=== PATIENT | male | born 1955 | race African-American/Black ===

== ENCOUNTER 2021-03-25 03:55 | Observation (INO) | payer SELFPAY ==
[~2021-03-25] VITALS: Ht 167.6 cm; Wt 74.0 kg
--- NOTE | 2021-03-25 04:13 | PHYS DOC ---
General Adult EDM: Chief Complaint: SHORTNESS OF BREATH HPI: HPI: Patient is a 65 year old male here with 2 to 3-week history of progressive dyspnea, dyspnea exertion, PND, orthopnea and coughing while lying flat. He denies having any chest pain. He denies sputum production or hemoptysis. He reports that he has exercise intolerance, and he is usually quite physically active. 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 He reports that he can usually exercise for over an hour, but he has been limited to exercising for just a few minutes at a time before becoming dyspneic and fatigued. He does report some polyuria polydips these symptoms as well. No reported weight loss or night sweats. He denies abdominal pain, nausea or vomiting. He denies dizziness, diaphoresis or syncope. He denies lower extremity pain or swelling. He was seen by the nurse practitioner at his primary care doctor's office and was prescribed steroids, and inhaler as well as antibiotics. He completed the course of these medications, but he still feels poorly. He has not had any outpatient imaging or laboratory exams done. Review of Systems: Review of Systems: Constitutional: Denies fever or chills. [] HENT: Denies nasal congestion or sore throat. [] Respiratory: He reports dry cough, mostly with lying flat at night. Denies hemoptysis or sputum production. Reports dyspnea at rest and dyspnea with exertion. Cardiovascular: Denies chest pain or edema. He reports PND, orthopnea, dyspnea with exertion. Denies syncope. GI: Denies abdominal pain, nausea, vomiting : Denies dysuria or gross hematuria. He does report urinary frequency. No urgency.] Musculoskeletal: Denies back pain or joint pain. [] Integument: Denies rash. [] Neurologic: Denies headache, focal weakness or sensory changes. [] Endocrine: Reports polyuria or polydipsia. [] Lymphatic: Denies swollen glands. [] Psychiatric: Denies depression or anxiety. [] Heart Score: C/O Chest Pain: No Risk Factors: Risk Factors: DM, Current or recent (<one month) smoker, HTN, HLP, family history of CAD, obesity. Risk Scores: Score 0 - 3: 2.5% MACE over next 6 weeks - Discharge Home Score 4 - 6: 20.3% MACE over next 6 weeks - Admit for Clinical Observation Score 7 - 10: 72.7% MACE over next 6 weeks - Early Invasive Strategies Physical Exam: PE: Constitutional: Well developed, well nourished, no acute distress, non-toxic appearance. [] HENT: Normocephalic, atraumatic Eyes: Sclera are clear and anicteric Neck: Normal range of motion, no tenderness, supple, no stridor. Mild JVD noted. Trachea is midline. Cardiovascular:Heart rate regular rhythm, occasional PVCs, +2 radial and +2 posterior tibial pulses bilaterally. Lungs & Thorax: Mild tachypnea. Bibasilar fine rales. No rhonchi or wheezes. No stridor. Speaks in full and clear sentences. No cyanosis. Abdomen: Abdomen soft, nondistended, nontender to palpation, no evidence of fluid wave or obvious ascites. No palpable masses organomegaly Skin: Warm, dry, no erythema, no rash. [] Back: No tenderness, no CVA tenderness. [] Extremities: No tenderness, no cyanosis, no clubbing, ROM intact, no edema. No calf tenderness. Neurologic: Alert and oriented X 3, normal motor function, normal sensory function, no focal deficits noted. [] Psychologic: He is mildly anxious but he is cooperative and very pleasant. EKG: EKG: EKG is interpreted at 0456 Rhythm is sinus tachycardia Rate is 105 bpm [place] is normal No STEMI Occasional PVCs Radiology/Procedures: Radiology/Procedures: IMAGING REPORT Signed PATIENT: TRACIE KURTZ ACCOUNT: [id number] : 1955 LOCATION: ER AGE: 65 SEX: M EXAM STATUS: PRE ER ORD. PHYSICIAN: RENEE YATES DO REASON: dyspnea, cough PROCEDURE: PORTABLE CHEST 1V EXAM: CHEST ONE VIEW. HISTORY: Dyspnea, cough. COMPARISON: None. FINDINGS: A frontal view of the chest is obtained. There are interstitial and airspace opacities in both bases. Small pleural effusions are suspected. There is no pneumothorax. The heart is mildly enlarged. IMPRESSION: 1. Bibasilar interstitial opacities are consistent with atypical pneumonia or mild pulmonary edema. Electronically signed by: Crystal Osullivan MD (03/25/2021 4:56 AM) [facility] DICTATED and SIGNED BY: SOPHIA OSULLIVAN MD DATE: 03/25/21 [id number] 0 Course & Med Decision Making: Course & Med Decision Making Pertinent Labs and Imaging studies reviewed. (See chart for details) I discussed the findings, differential diagnosis and plan of care with the patient. He is given a dose of IV Lasix. He does have evidence of congestive heart failure, which is new diagnosis for him. Troponin is mildly elevated, this is likely elated to underlying heart failure. No acute ischemia noted on EKG. He denies chest pain. He is manifests no evidence of hypoxia. I have recommended admission to the hospital, cardiology consultation and echocardiogram. He is amenable to this and is comfortable with this plan. He is accepted for admission by Dr. العراقي. Oneil Disclaimer: Oneil Disclaimer: This electronic medical record was generated, in whole or in part, using a voice recognition dictation system. Departure Departure Impression: Primary Impression: CHF (congestive heart failure) Qualified Codes: I50.9 - Heart failure, unspecified Disposition: ADMITTED INPATIENT Admitting Physician: TESSY (Dr. العراقي) Condition: STABLE TRUDYRENEE DO Mar 25, 2021 04:13
--- NOTE | 2021-03-25 04:59 | RAD ---
EXAM: CHEST ONE VIEW. HISTORY: Dyspnea, cough. COMPARISON: None. FINDINGS: A frontal view of the chest is obtained. There are interstitial and airspace opacities in both bases. Small pleural effusions are suspected. T here is no pneumothorax. The heart is mildly enlarged. IMPRESSION: 1. Bibasilar interstitial opacities are consistent with atypical pneumonia or mild pulmonary edema. Electronically signed by: Crystal Osullivan MD (03/25/2021 4:56 AM) [facility]
[2021-03-25 05:11] LABS: BASO % 1 % (0-3); EOS # 0.1 x10^3/uL (0.0-0.7); EOS % 2 % (0-3); HEMATOCRIT 43.8 % (39.0-53.0); HEMOGLOBIN 14.5 g/dL (13.0-17.5); LYMPH # 1.5 x10^3/uL (1.0-4.8); LYMPH % 37 % (24-48); MEAN CORPUSCULAR HEMOGLOBIN 31 pg (25-35); MEAN CORPUSCULAR HGB CONC 33 g/dL (31-37); MEAN CORPUSCULAR VOLUME 93 fL (79-100); MONO # 0.4 x10^3/uL (0.0-1.1); MONO % 11 % (0-9); NEUT # 1.9 x10^3/uL (1.8-7.7); NEUT % 49 % (31-73); PLATELET COUNT 285 x10^3/uL (140-400); RED BLOOD COUNT 4.73 x10^6/uL (4.30-5.70); RED CELL DISTRIBUTION WIDTH 12.9 % (11.5-14.5)
[2021-03-25 05:19] LABS: BILIRUBIN,URINE NEGATIVE (NEG); CLARITY,URINE CLEAR; COLOR,URINE YELLOW; NITRITE,URINE NEGATIVE (NEG); PROTEIN,URINE NEGATIVE (NEG-TRACE)
[2021-03-25 05:24] LABS: CALCIUM 8.5 mg/dL (8.5-10.1); CREATININE 1.1 mg/dL (0.7-1.3); GFR 81.3; POTASSIUM 4.4 mmol/L (3.5-5.1)
--- NOTE | 2021-03-25 05:24 | EKG ---
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
[2021-03-25 05:29] LABS: BACTERIA,URINE 0 /HPF (0-FEW); RBC,URINE OCC /HPF (0-2); WBC,URINE 0 /HPF (0-4)
[2021-03-25 05:32] LABS: ALBUMIN 3.5 g/dL (3.4-5.0); MAGNESIUM 2.3 mg/dL (1.8-2.4); TOTAL BILIRUBIN 0.3 mg/dL (0.2-1.0); TOTAL PROTEIN 7.1 g/dL (6.4-8.2)
[2021-03-25] MEDS ORDERED: FUROSEMIDE 20 MG/2 ML VIAL. IVP ONE (06:15)
[2021-03-25] MEDS ORDERED: ONDANSETRON PF 4 MG/2 ML VIAL. IVP PRN (06:30)
[2021-03-25 07:52] VITALS: BP 120/78
[2021-03-25 11:00] VITALS: BP 136/88
[2021-03-25] MEDS ORDERED: AMLO-186 PO (11:43)
--- NOTE | 2021-03-25 12:03 | HP ---
DATE OF SERVICE: 03/25/2021 ADMIT DATE: 03/25/2021 CHIEF COMPLAINT: Shortness of breath. HISTORY OF PRESENT ILLNESS: The patient is a pleasant middle-aged male who presented to the ER with shortness of breath which has been occurring for several weeks, worse with moving, better with sitting still, but it got worse over the past couple of days. He also has some orthopnea and cough while lying flat. While in the ER, we noticed that his chest x-ray is showing some pulmonary edema or even possible pneumonia. His BNP level is also high at 30 to 33. I discussed the case with the ER physician. We are going to admit the patient and consult Cardiology as it appears he is in heart failure. PAST MEDICAL HISTORY: Benign. ALLERGIES: None. FAMILY HISTORY: Hypertension. SOCIAL HISTORY: He does not drink, smoke or take drugs. MEDICATIONS: Reviewed, please refer to the MRAD. REVIEW OF SYSTEMS: GENERAL: No history of weight change, weakness or fevers. SKIN: No bruising, hair changes or rashes. EYES: No blurred, double or loss of vision. NOSE AND THROAT: No history of nosebleeds, hoarseness or sore throat. HEART: No history of palpitations, chest pain. PULMONARY: He complains of shortness of breath. GASTROINTESTINAL: Denies changes in appetite, nausea, vomiting, diarrhea or constipation. GENITOURINARY: No history of frequency, urgency, hesitancy or nocturia. NEUROLOGIC: Denies history of numbness, tingling, tremor or weakness. PSYCHIATRIC: No history of panic, anxiety or depression. ENDOCRINE: No history of heat or cold intolerance, polyuria or polydipsia. EXTREMITIES: Denies muscle weakness, joint pain, pain on walking or stiffness. PHYSICAL EXAMINATION: VITALS: Within normal limits and are stable. GENERAL: No apparent distress. Alert and oriented. HEENT: Normal cephalic atraumatic, external auditory canals are patent EYES: Extraocular muscles are intact, pupils are equally round and reactive to light and accommodation MUSKULOSKELETAL: Well developed, well nourished, good range of motion ENDOCRINE: No thyromegaly was palpated LYMPHATICS: No cervical chain or axillary nodes were noted HEMATOPOIETIC: No bruising NECK: Supple, no JVD, no thyromegaly was noted. LUNGS: He has some slight crackles on the right. HEART: RRR, S1, S2 present. Peripheral pulses intact, no obvious murmurs were noted. ABDOMEN: Soft, nontender. Positive bowel sounds no organomegaly, normal bowel sounds. EXTREMITIES: Without any cyanosis, clubbing, or edema. Pedal pulses intact, Homans sign is negative. NEUROLOGIC: Normal speech, normal tone. A and O x 3, moves all extremities, no obvious focal deficits. PSYCHIATRIC: Normal affect, normal mood. Stable. SKIN: No ulcerations or rashes, good skin turgor, no jaundice. LABORATORY DATA: Hematology is normal. Electrolytes are normal. D-dimer is less than 0.27. Urinalysis is negative. COVID testing is negative. BNP is a little high at 30-33. Troponin is 72. ASSESSMENT AND PLAN: Shortness of breath with some slight hypoxia with an elevated BNP and abnormal chest x-ray, suspect he probably has some mild acute on chronic systolic and diastolic heart failure. The patient has been admitted. We are checking serial enzymes, serial EKGs. We consulted Cardiology, home meds, deep venous thrombosis prophylaxis, full code. He got a dose of IV Lasix in the ER. We will await Cardiology input. AGUS/IVONNE DR: AGUS/pranay TID: [id number]
[2021-03-25] MEDS: FUROSEMIDE 40 MG TABLET. PO SCH (12:12)
[2021-03-25] MEDS: POTASSIUM CHLORIDE 20 MEQ TABLET.ER. PO SCH (12:12)
[2021-03-25 14:40] VITALS: BP 144/72
--- NOTE | 2021-03-25 14:42 | PDOC2 ---
CONSULT Date of Consult Date of Consult DATE: 03/25/21 TIME: 14:42 Reason for Consult Reason for Consult: Congestive heart failure Referring Physician Referring Physician: Dr. العراقي Identification/Chief Complaint Chief Complaint Shortness of breath Source Source: Chart review, Patient History of Present Illness Reason for Visit: 65-year-old male without any previous cardiac history presented complaining of 3 to 4-week history of shortness of breath, cough and paroxysmal nocturnal dyspnea. He was apparently seen by PCP few weeks ago and was treated with inhalers and antibiotics without any significant improvement. He denied any chest pain, palpitations or syncope. Symptoms improved after he received intravenous Lasix on admission. Past Medical History Cardiovascular: No pertinent hx Past Surgical History Past Surgical History: No pertinent history Family History Family History Positive for premature coronary artery disease Social History Social History Patient denied any smoking or drug abuse but admitted to drinking 1 bottle of wine daily Current Medications Current Medications Current Medications Furosemide (Lasix) 20 mg 1X ONCE IVP Last administered on 03/25/21at 06:15; Start 03/25/21 at 06:15; Stop 03/25/21 at 06:21; Status DC Ondansetron HCl (Zofran) 4 mg PRN Q8HRS PRN IVP NAUSEA/VOMITING; Start 03/25/21 at 06:30; Stop 03/26/21 at 06:29 Furosemide (Lasix) 40 mg DAILY PO Last administered on 03/25/21at 12:12; Start 03/25/21 at 12:00 Potassium Chloride (Klor-Con) 20 meq DAILY PO Last administered on 03/25/21at 12:12; Start 03/25/21 at 12:00 Active Scripts Active Reported Amlodipine Besylate 5 Mg Tablet 5 Mg PO DAILY Allergies Allergies: Coded Allergies: No Known Drug Allergies (Unverified , 03/25/21) ROS PSYCHOLOGICAL ROS: No: Hallucinations Eyes: No Loss of vision HEENT: No: Epistaxis Respiratory: YES: Shortness of breath; No: Hemoptysis Gastrointestinal: No Vomiting, No Diarrhea Genitourinary: No Hematuria Neurological: No Seizures Skin: No Rash Physical Exam General: Alert, Oriented X3 HEENT: Atraumatic Lungs: Other (Scattered crepitations bilaterally) Heart: Other (Tachycardic but regular) Abdomen: Soft Extremities: No edema Neuro: Normal speech Psych/Mental Status: Mood NL Vitals VITALS Vital Signs Date Time Temp Pulse Resp B/P (MAP) Pulse Ox O2 Delivery O2 Flow Rate FiO2 03/25/21 14:40 97.3 102 20 144/72 (96) 98 Room Air 2.0 97.3 Labs Labs Laboratory Tests Test 03/25/21 04:50 03/25/21 05:00 03/25/21 05:10 03/25/21 07:30 White Blood Count 4.0 x10^3/uL (4.0-11.0) Red Blood Count 4.73 x10^6/uL (4.30-5.70) Hemoglobin 14.5 g/dL (13.0-17.5) Hematocrit 43.8 % (39.0-53.0) Mean Corpuscular Volume 93 fL (79-100) Mean Corpuscular Hemoglobin 31 pg (25-35) Mean Corpuscular Hemoglobin Concent 33 g/dL (31-37) Red Cell Distribution Width 12.9 % (11.5-14.5) Platelet Count 285 x10^3/uL (140-400) Neutrophils (%) (Auto) 49 % (31-73) Lymphocytes (%) (Auto) 37 % (24-48) Monocytes (%) (Auto) 11 % (0-9) Eosinophils (%) (Auto) 2 % (0-3) Basophils (%) (Auto) 1 % (0-3) Neutrophils # (Auto) 1.9 x10^3/uL (1.8-7.7) Lymphocytes # (Auto) 1.5 x10^3/uL (1.0-4.8) Monocytes # (Auto) 0.4 x10^3/uL (0.0-1.1) Eosinophils # (Auto) 0.1 x10^3/uL (0.0-0.7) Basophils # (Auto) 0.0 x10^3/uL (0.0-0.2) D-Dimer (Tatyana) < 0.27 ug/mlFEU Sodium Level 142 mmol/L (136-145) Potassium Level 4.4 mmol/L (3.5-5.1) Chloride Level 106 mmol/L (98-107) Carbon Dioxide Level 25 mmol/L (21-32) Anion Gap 11 (6-14) Blood Urea Nitrogen 14 mg/dL (8-26) Creatinine 1.1 mg/dL (0.7-1.3) Estimated GFR (Cockcroft-Gault) 81.3 BUN/Creatinine Ratio 13 (6-20) Glucose Level 105 mg/dL (70-99) Calcium Level 8.5 mg/dL (8.5-10.1) Magnesium Level 2.3 mg/dL (1.8-2.4) Total Bilirubin 0.3 mg/dL (0.2-1.0) Aspartate Amino Transf (AST/SGOT) 27 U/L (15-37) Alanine Aminotransferase (ALT/SGPT) 46 U/L (16-63) Alkaline Phosphatase 65 U/L (46-116) Troponin I High Sensitivity 72 ng/L (4-75) 71 ng/L (4-75) FJ-Lhc-L-Type Natriuretic Peptide 3233 pg/mL (0-124) Total Protein 7.1 g/dL (6.4-8.2) Albumin 3.5 g/dL (3.4-5.0) Albumin/Globulin Ratio 1.0 (1.0-1.7) SARS-CoV-2 RNA (PIPPA) Negative (Negative) SARS-CoV-2 Antigen (Rapid) Negative (NEGATIVE) Urine Collection Type Unknown Urine Color Yellow Urine Clarity Clear Urine pH 6.0 (<5.0-8.0) Urine Specific [place] 1.015 (1.000-1.030) Urine Protein Negative mg/dL (NEG-TRACE) Urine Glucose (UA) Negative mg/dL (NEG) Urine Ketones (Stick) Negative mg/dL (NEG) Urine Blood Negative (NEG) Urine Nitrite Negative (NEG) Urine Bilirubin Negative (NEG) Urine Urobilinogen Dipstick 1.0 mg/dL (0.2 mg/dL) Urine Leukocyte Esterase Negative (NEG) Urine RBC Occ /HPF (0-2) Urine WBC 0 /HPF (0-4) Urine Squamous Epithelial Cells Few /LPF Urine Bacteria 0 /HPF (0-FEW) Urine Mucus Slight /LPF Test 03/25/21 11:40 Troponin I High Sensitivity 68 ng/L (4-75) Laboratory Tests Test 03/25/21 04:50 03/25/21 05:00 03/25/21 05:10 03/25/21 07:30 White Blood Count 4.0 x10^3/uL (4.0-11.0) Red Blood Count 4.73 x10^6/uL (4.30-5.70) Hemoglobin 14.5 g/dL (13.0-17.5) Hematocrit 43.8 % (39.0-53.0) Mean Corpuscular Volume 93 fL (79-100) Mean Corpuscular Hemoglobin 31 pg (25-35) Mean Corpuscular Hemoglobin Concent 33 g/dL (31-37) Red Cell Distribution Width 12.9 % (11.5-14.5) Platelet Count 285 x10^3/uL (140-400) Neutrophils (%) (Auto) 49 % (31-73) Lymphocytes (%) (Auto) 37 % (24-48) Monocytes (%) (Auto) 11 % (0-9) Eosinophils (%) (Auto) 2 % (0-3) Basophils (%) (Auto) 1 % (0-3) Neutrophils # (Auto) 1.9 x10^3/uL (1.8-7.7) Lymphocytes # (Auto) 1.5 x10^3/uL (1.0-4.8) Monocytes # (Auto) 0.4 x10^3/uL (0.0-1.1) Eosinophils # (Auto) 0.1 x10^3/uL (0.0-0.7) Basophils # (Auto) 0.0 x10^3/uL (0.0-0.2) D-Dimer (Tatyana) < 0.27 ug/mlFEU Sodium Level 142 mmol/L (136-145) Potassium Level 4.4 mmol/L (3.5-5.1) Chloride Level 106 mmol/L (98-107) Carbon Dioxide Level 25 mmol/L (21-32) Anion Gap 11 (6-14) Blood Urea Nitrogen 14 mg/dL (8-26) Creatinine 1.1 mg/dL (0.7-1.3) Estimated GFR (Cockcroft-Gault) 81.3 BUN/Creatinine Ratio 13 (6-20) Glucose Level 105 mg/dL (70-99) Calcium Level 8.5 mg/dL (8.5-10.1) Magnesium Level 2.3 mg/dL (1.8-2.4) Total Bilirubin 0.3 mg/dL (0.2-1.0) Aspartate Amino Transf (AST/SGOT) 27 U/L (15-37) Alanine Aminotransferase (ALT/SGPT) 46 U/L (16-63) Alkaline Phosphatase 65 U/L (46-116) Troponin I High Sensitivity 72 ng/L (4-75) 71 ng/L (4-75) LO-Vms-W-Type Natriuretic Peptide 3233 pg/mL (0-124) Total Protein 7.1 g/dL (6.4-8.2) Albumin 3.5 g/dL (3.4-5.0) Albumin/Globulin Ratio 1.0 (1.0-1.7) SARS-CoV-2 RNA (PIPPA) Negative (Negative) SARS-CoV-2 Antigen (Rapid) Negative (NEGATIVE) Urine Collection Type Unknown Urine Color Yellow Urine Clarity Clear Urine pH 6.0 (<5.0-8.0) Urine Specific [place] 1.015 (1.000-1.030) Urine Protein Negative mg/dL (NEG-TRACE) Urine Glucose (UA) Negative mg/dL (NEG) Urine Ketones (Stick) Negative mg/dL (NEG) Urine Blood Negative (NEG) Urine Nitrite Negative (NEG) Urine Bilirubin Negative (NEG) Urine Urobilinogen Dipstick 1.0 mg/dL (0.2 mg/dL) Urine Leukocyte Esterase Negative (NEG) Urine RBC Occ /HPF (0-2) Urine WBC 0 /HPF (0-4) Urine Squamous Epithelial Cells Few /LPF Urine Bacteria 0 /HPF (0-FEW) Urine Mucus Slight /LPF Test 03/25/21 11:40 Troponin I High Sensitivity 68 ng/L (4-75) Assessment/Plan Assessment/Plan 1. Congestive heart failure, most probably acute on chronic diastolic. Better compensated with intravenous Lasix received in ED. Plan for 2D echo and ischemic evaluation as an outpatient. 2. Sinus tachycardia: Cannot rule out alcohol withdrawal as a cause. Start beta-blockers. 3. Alcohol abuse: Advised on abstinence Thank you for your consultation EVELIN LACY MD Mar 25, 2021 14:42
[2021-03-25] MEDS: METOPROLOL SUCC 24HR ER 25 MG TAB.ER.24H. PO SCH (15:40)
[2021-03-25 19:00] VITALS: BP 135/71
[2021-03-25] MEDS ORDERED: diphenhydrAMINE HCL 25 MG CAPSULE PO ONE (22:45)
[2021-03-25 23:00] VITALS: BP 116/74
[2021-03-26 02:56] VITALS: BP 116/69
[2021-03-26 04:55] LABS: CHOLESTEROL/HDL RATIO 2.6
[2021-03-26 07:00] VITALS: BP 110/74
[2021-03-26] MEDS: POTASSIUM CHLORIDE 20 MEQ TABLET.ER. PO SCH (08:21)
[2021-03-26] MEDS: FUROSEMIDE 40 MG TABLET. PO SCH (08:21)
[2021-03-26] MEDS: METOPROLOL SUCC 24HR ER 25 MG TAB.ER.24H. PO SCH (08:22)
[2021-03-26 11:00] VITALS: BP 94/70
[2021-03-26] MEDS ORDERED: FURO40TA4 PO (12:20)
[2021-03-26] MEDS ORDERED: POTA20TA4 PO (12:20)
[2021-03-26] MEDS ORDERED: METO-239 PO (12:20)
--- NOTE | 2021-03-26 12:27 | PDOC ---
[employer] PROGRESS NOTE Date of Service DOS: DATE: 03/26/21 TIME: 12:25 Chief Complaint Chief Complaint Acute on chronic systolic and diastolic heart failure Hypertension Possible alcohol use? History of Present Illness History of Present Illness 03/26/2021 Patient seen and examined Discussed with RN Chart reviewed He seems to be at his baseline we will go ahead and discharge on p.o. Lasix and potassium and metoprolol Vitals/I&O Vitals/I&O: Vital Signs Date Time Temp Pulse Resp B/P (MAP) Pulse Ox O2 Delivery O2 Flow Rate FiO2 03/26/21 08:22 92 110/74 03/26/21 08:00 Nasal Cannula 2.0 03/26/21 07:00 98.0 20 95 98.0 03/25/21 23:00 N/A I & O 03/25/21 03/25/21 03/26/21 15:00 23:00 07:00 Intake Total 150 ml 300 ml Balance 150 ml 300 ml Physical Exam General: Alert, Oriented X3 Heart: Other (Tachycardic but regular) Abdomen: Soft Extremities: No edema Labs Labs: Laboratory Tests Test 03/26/21 04:00 Triglycerides Level 123 mg/dL (0-150) Cholesterol Level 190 mg/dL (0-200) LDL Cholesterol, Calculated 91 mg/dL (0-100) VLDL Cholesterol, Calculated 25 mg/dL (0-40) Non-HDL Cholesterol Calculated 116 mg/dL (0-129) HDL Cholesterol 74 mg/dL (40-60) Cholesterol/HDL Ratio 2.6 Assessment and Plan Assessmemt and Plan Acute on chronic systolic and diastolic heart failure Hypertension Possible alcohol use? Plan We will go ahead and discharge on p.o. Lasix 40 a day potassium 20 a day and metoprolol Appreciate cardiology input Per cardiology see the following recommendations and we certainly agree and appreciate their input; Assessment/Plan 1. Congestive heart failure, most probably acute on chronic diastolic. Better compensated with intravenous Lasix received in ED. Plan for 2D echo and ischemic evaluation as an outpatient. 2. Sinus tachycardia: Cannot rule out alcohol withdrawal as a cause. Start beta-blockers. 3. Alcohol abuse: Advised on abstinence Thank you for your consultation Comment Review of Relevant I have reviewed the following items rajinder (where applicable) has been applied. Medications: Current Medications Medications (Trade) Dose Ordered Sig/Devon Route PRN Reason Start Time Stop Time Status Last Admin Dose Admin Metoprolol Succinate (Toprol Xl) 25 mg DAILY PO 03/25/21 15:15 03/26/21 08:22 Diphenhydramine HCl (Benadryl) 25 mg 1X ONCE PO 03/25/21 22:45 03/25/21 22:47 DC 03/25/21 22:50 Justifications for Admission Other Justification ANDREWS PINO III DO Mar 26, 2021 12:27
--- NOTE | 2021-03-26 13:22 | DS ---
DATE OF DISCHARGE: 03/26/2021 ADMITTING DIAGNOSES: Acute on chronic systolic and diastolic heart failure. DISCHARGE DIAGNOSIS: Resolving heart failure. CONSULTS: Cardiology. PROCEDURES: None. HOSPITAL COURSE: The patient is a pleasant middle-aged male who presented with shortness of breath and was noted to have acute on chronic systolic and diastolic congestive heart failure. We admitted the patient. We diuresed him. We consulted Cardiology. He is now on Lasix, potassium, and metoprolol. He is doing better. I saw him and examined him today. He wants to go home. We plan to discharge if okay with Cardiology. DISPOSITION: Home. ACTIVITY: As tolerated. DIET: Low sodium. MEDICATIONS: Lasix 40 a day, metoprolol 25 a day, potassium 20 a day, amlodipine 5 a day. TOTAL TIME: 34 minutes. AGUS/IVONNE DR: Katiuska TID: [id number]
--- NOTE | 2021-03-26 13:34 | PDOC ---
PROGRESS NOTES Date of Service: DATE: 03/26/21 TIME: 13:33 Subjective Subjective Dyspnea improved. Denied any chest pain. Objective Objective Vital Signs Date Time Temp Pulse Resp B/P (MAP) Pulse Ox O2 Delivery O2 Flow Rate FiO2 03/26/21 11:00 98.3 88 20 94/70 (78) 96 Room Air 98.3 03/26/21 08:00 2.0 03/25/21 23:00 N/A Intake and Output 03/26/21 07:00 Intake Total 450 ml Balance 450 ml Intake Oral 450 ml Physical Exam Abdomen: Soft Heart: Other (Tachycardic but regular) Extremities: No edema General: Alert, Oriented X3 HEENT: Atraumatic Lungs: Other (Scattered crepitations bilaterally) Neuro: Normal speech Psych/Mental Status: Mood NL Assessment Assessment 1. Congestive heart failure, most probably acute on chronic diastolic. Better compensated after diuresis with Lasix. Plan for 2D echo and ischemic evaluation as an outpatient. 2. Sinus tachycardia: Improved with beta-blockers 3. Alcohol abuse: Advised on abstinence Comment Review of Relevant I have reviewed the following items rajinder (where applicable) has been applied. Labs Laboratory Tests Test 03/26/21 04:00 Triglycerides Level 123 mg/dL (0-150) Cholesterol Level 190 mg/dL (0-200) LDL Cholesterol, Calculated 91 mg/dL (0-100) VLDL Cholesterol, Calculated 25 mg/dL (0-40) Non-HDL Cholesterol Calculated 116 mg/dL (0-129) HDL Cholesterol 74 mg/dL (40-60) Cholesterol/HDL Ratio 2.6 Medications Current Medications Diphenhydramine HCl (Benadryl) 25 mg 1X ONCE PO Last administered on 03/25/21at 22:50; Start 03/25/21 at 22:45; Stop 03/25/21 at 22:47; Status DC Metoprolol Succinate (Toprol Xl) 25 mg DAILY PO Last administered on 03/26/21at 08:22; Start 03/25/21 at 15:15 Vitals/I & O Vital Sign - Last 24 Hours 03/25/21 03/25/21 03/25/21 03/25/21 14:40 15:40 19:00 23:00 Temp 97.3 98.1 97.9 97.3 98.1 97.9 Pulse 102 113 108 98 Resp 20 18 18 B/P (MAP) 144/72 (96) 143/84 135/71 (92) 116/74 (88) Pulse Ox 98 96 98 O2 Delivery Room Air Room Air Room Air O2 Flow Rate 2.0 03/25/21 03/26/21 03/26/21 03/26/21 23:00 02:56 07:00 08:00 Temp 97.8 98.0 97.8 98.0 Pulse 90 89 Resp 24 18 20 B/P (MAP) 116/69 (85) 110/74 (86) Pulse Ox 98 95 O2 Delivery Nasal Cannula Room Air Room Air Nasal Cannula O2 Flow Rate 2.0 FiO2 N/A 03/26/21 03/26/21 08:22 11:00 Temp 98.3 98.3 Pulse 92 88 Resp 20 B/P (MAP) 110/74 94/70 (78) Pulse Ox 96 O2 Delivery Room Air Intake and Output 03/25/21 03/25/21 03/26/21 15:00 23:00 07:00 Intake Total 150 ml 300 ml Balance 150 ml 300 ml EVELIN LACY MD Mar 26, 2021 13:34
== END 2021-03-26 12:45 | disposition home or self-care (01) ==
LOC: ER 03:55 → ED HOLD 06:06 → 6 SOUTH 07:59
PROVIDERS: ADMIT Internal Medicine; ATTEND Internal Medicine
DX: I11.0 Hypertensive heart disease with heart failure (principal); I50.43 Acute on chronic combined systolic (congestive) and diastolic (congestive) heart failure; Z20.822 Contact with and (suspected) exposure to COVID-19; J18.9 Pneumonia, unspecified organism; F10.10 Alcohol abuse, uncomplicated; R06.02 Shortness of breath; R09.02 Hypoxemia; R00.0 Tachycardia, unspecified
CPT/HCPCS: 36415; 71045; 80053; 80061; 81001; 83735; 83880; 84484; 85025; 85379; 87426; 93005; 96374; 99285; G0378; J1940; Q0163; U0003; U0005; G0379

== ENCOUNTER → 2021-04-05 | Outpatient (CLI) | payer MEDICARE ==
[2021-03-26 11:00] VITALS: BP 94/70
[~2021-04-05] MED LIST: AMLO-186 PO; FURO40TA4 PO; METO-239 PO; POTA20TA4 PO
--- NOTE | 2021-04-05 13:20 | CARD ---
MR#: [id number] Date of Study: 04/05/2021 Ordering Physician: EVELIN LACY, Referring Physician: EVELIN LACY Tech: Shalini Mcnair [facility] APPROVED REPORT EXAM: Two-dimensional and M-mode echocardiogram with Doppler and color Doppler. Other Information Quality : GoodHR: 93bpm Rhythm : NSR INDICATION Dyspnea RISK FACTORS Hypertension 2D DIMENSIONS RVDd4.5 (2.9-3.5cm)Left Atrium(2D)4.2 (1.6-4.0cm) IVSd0.9 (0.7-1.1cm)Aortic Root(2D)3.3 (2.0-3.7cm) LVDd6.2 (3.9-5.9cm)LVOT Diameter2.3 (1.8-2.4cm) PWd1.0 (0.7-1.1cm)LVDs5.5 (2.5-4.0cm) FS (%) 11.6 %SV48.1 ml LVEF(%)24.6 (>50%) Aortic Valve AoV Peak Sharif.93.5cm/sAoV VTI16.3cm AO Peak GR.3.5mmHgLVOT Peak Sharif.83.6cm/s AO Mean GR.2mmHgAVA (VMAX)3.61cm2 Mitral Valve MV E Qunacgnp43.9cm/sMV DECEL ELEL91oq MV A Blxiksrn88.8cm/sE/A Ratio1.8 Pulmonary Valve PV Peak Vrvbdvzq02.5cm/s Tricuspid Valve TR P. Jposouon648pb/sTR Peak Gr.28mmHg LEFT VENTRICLE The Left Ventricle is mildly dilated. There is normal left ventricular wall thickness. The left ventr icular systolic function is severely impaired. Estimated ejection fraction 15%. There is global hypo kinesis of the left ventricle. Tissue Doppler imaging reveals moderate left ventricular diastolic dys function. RIGHT VENTRICLE The right ventricle is mildly dilated. There is normal right ventricular wall thickness. The right ve ntricular systolic function is normal. ATRIA The left atrium is mildly dilated. The right atrium size is normal. The interatrial septum is intact with no evidence for an atrial septal defect or patent foramen ovale as noted on 2-D or Doppler imagi ng. AORTIC VALVE The aortic valve is normal in structure and function. Doppler and Color Flow revealed trace aortic re gurgitation. There is no significant aortic valvular stenosis. MITRAL VALVE The mitral valve is normal in structure and function. There is no evidence of mitral valve prolapse. There is no mitral valve stenosis. Doppler and Color-flow revealed mild to moderate mitral regurgitat ion. TRICUSPID VALVE The tricuspid valve is normal in structure and function. Doppler and Color Flow revealed mild tricusp id regurgitation. Estimated PAP 32-35 mmHg. There is no tricuspid valve stenosis. PULMONIC VALVE The pulmonary valve is normal in structure and function. Doppler and Color Flow revealed mild pulmoni c valvular regurgitation. GREAT VESSELS The aortic root is normal in size. The ascending aorta is normal in size. The IVC is normal in size a nd collapses >50% with inspiration. PERICARDIAL EFFUSION There is no evidence of significant pericardial effusion. Critical Notification Critical Value: Yes <Conclusion> The left ventricular systolic function is severely impaired. Estimated ejection fraction 15%. Tissue Doppler imaging reveals moderate left ventricular diastolic dysfunction. Mild to moderate mitral regurgitation. Mild tricuspid regurgitation. Estimated PAP 32-35 mmHg. There is no evidence of significant pericardial effusion. Signed by : Evelin Lacy, Electronically Approved : 04/05/2021 13:19:32
== END ==
LOC: ECHO 10:49
PROVIDERS: ATTEND Internal Medicine Cardiovascular Disease
DX: I08.8 Other rheumatic multiple valve diseases (principal); I50.9 Heart failure, unspecified; R06.00 Dyspnea, unspecified
CPT/HCPCS: 93306

== ENCOUNTER 2021-04-14 08:11 | Outpatient (CLI) | payer OTHER, MEDICARE ==
[2021-04-14] VITALS (10 sets, daily range): BP systolic 90–114; BP diastolic 51–73
[~2021-04-14] VITALS: Ht 170.2 cm; Wt 71.8 kg
[2021-04-14] MEDS ORDERED: ATOR20TA58 PO (08:30)
[2021-04-14] MEDS ORDERED: SPIR25TA5 PO (08:30)
[2021-04-14] MEDS ORDERED: SACU1TAB PO (08:30)
[2021-04-14 08:55] LABS: HEMATOCRIT 47.4 % (39.0-53.0); HEMOGLOBIN 16.1 g/dL (13.0-17.5); RED BLOOD COUNT 5.24 x10^6/uL (4.30-5.70); RED CELL DISTRIBUTION WIDTH 12.4 % (11.5-14.5); WHITE BLOOD COUNT 4.3 x10^3/uL (4.0-11.0)
[2021-04-14 08:57] LABS: CALCIUM 8.9 mg/dL (8.5-10.1); CREATININE 1.4 mg/dL (0.7-1.3); GFR 61.5; POTASSIUM 4.1 mmol/L (3.5-5.1)
[2021-04-14] MEDS ORDERED: LIDOCAINE 1% PF 2 ML VIAL. ONE (09:44)
[2021-04-14] MEDS ORDERED: IODIXANOL 320 MG/ML 100 ML VIAL. ONE (09:44)
[2021-04-14] MEDS ORDERED: VERAPAMIL 5 MG/2 ML VIAL. ONE (09:45)
[2021-04-14] MEDS ORDERED: fentaNYL PF VIAL 100 MCG/2 ML VIAL ONE (09:45)
[2021-04-14] MEDS ORDERED: MIDAZOLAM HCL/PF 2 MG/2 ML VIAL. ONE (09:45)
[2021-04-14] MEDS ORDERED: NITROGLYCERIN 200 MCG/2 ML SYRINGE FOR CATH/VASC LAB. ONE (09:45)
[2021-04-14] MEDS ORDERED: HEPARIN for IV BOLUS 10,000 UNIT/10 ML VIAL. ONE (09:45)
[2021-04-14] MEDS ORDERED: NITROGLYCERIN 200 MCG/2 ML SYRINGE FOR CATH/VASC LAB. IART ONE (10:00)
[2021-04-14] MEDS ORDERED: HEPARIN for IV BOLUS 10,000 UNIT/10 ML VIAL. IART ONE (10:00)
[2021-04-14] MEDS ORDERED: VERAPAMIL 5 MG/2 ML VIAL. IART ONE (10:00)
[2021-04-14] MEDS ORDERED: fentaNYL PF VIAL 100 MCG/2 ML VIAL IV ONE (10:00)
[2021-04-14] MEDS ORDERED: IODIXANOL 320 MG/ML 100 ML VIAL. IART ONE (10:00)
[2021-04-14] MEDS ORDERED: LIDOCAINE 1% PF 2 ML VIAL. INJ ONE (10:00)
[2021-04-14] MEDS ORDERED: MIDAZOLAM HCL/PF 2 MG/2 ML VIAL. IV ONE (10:00)
--- NOTE | 2021-04-14 10:36 | PDOC ---
MODERATE SEDATION ASSESSMENT RISKS/ALTERNATIVES Risks/Alternatives Risks and alternatives of this type of sedation and procedure discussed with: RISK/ALTERNATIVES: Patient H & P ON CHART H & P H & P on chart and reviewed for co-morbid conditions and appropriate labs. H&P ON CHART: Yes STATUS PREG STATUS ASSESSED: N/A MEDS/ALLERGIES REVIEWED Meds/Allergies Reviewed Medications and Allergies including time and route of recently administered narcotics and sedatives. MEDS/ALLERGIES REVIEWED: Yes ASA RATING ASA RATING: II AIRWAY ASSESSMENT Airway Assessment Airway patency, oral function limitations, presence of caps, crowns, dentures, partials, and ability to extend neck assessed. AIRWAY ASSESSMENT: Yes MALLAMPATI SCORE MALLAMPATI SCORE: II PRE-SEDATION ASSESSMENT PRE-SEDATION ASSESSMENT: Yes EVELIN LACY MD Apr 14, 2021 10:36
[2021-04-14] MEDS ORDERED: IV 1/2 NORMAL SALINE 1,000 ML IV SCH (10:45)
--- NOTE | 2021-04-14 10:51 | CARD ---
MR#: [id number] Date of Study: 04/14/2021 Ordering Physician: EVELIN LACY, Referring Physician: EVELIN LACY Tech: RT Amy(R) APPROVED REPORT Technologist: Ramya Grover RT(R) Nurse: Марина Schulz RN Procedure(s) performed: 1. Left heart catheterization, selective coronary angiography via right gilman sradial approach 2. Instantaneous wave free ratio (IFR) measurement to right coronary artery stenosis MODERATE SEDATION TIME: 32 MINUTES FLUORO TIME: 5.7 MIN DOSE: 53.7 GYCM2 CONTRAST: 87CC VISI INDICATION The indication(s) include : Cardiomyopathy. [facility] Clinical Frailty Scale [facility] Clinical Frailty Scale: Managing Well Heart Failure Heart Failure: Yes If Yes, Newly Diagnosed: No If Yes, HF Type: Systolic If Yes, NYHA Class: Class II CASE TECHNIQUE IV conscious sedation was used throughout procedure with appropriate monitoring and was performed in the presence of a registered nurse who was an independent trained observer other than the physician p erforming the procedure. During this case, Fluoroscopy and low osmolar contrast were used for imaging . Specimen(s) Removed: No Estimated Blood loss: 15 cc's. PROCEDURE NARRATIVE After explaining the risks, benefits and alternative options, informed consent was obtained from zen ent. Patient was brought to the cardiac [facility] and right wrist was prepped and draped in the usual fashion after confirming a positive modified Joe's test. Arterial access was obtained in the rig t radial artery and a 6 Georgian sheath was inserted. 6 Georgian Son catheter was used to perform alyssia ective angiography of the left and right coronary arteries. LVEDP and transaortic gradients were vega sured. Left ventriculography was not performed since recent 2D echo showed LVEF 15%. Since patient was found to have borderline significant stenosis involving right coronary artery, a de cision was made to assess the physiologic significance using instantaneous wave free ratio (IFR) shellie urement. The right coronary artery was engaged with a six Georgian JR4 guide catheter and the stenosis in the midsegment was crossed with a Sapheneia Verrara pressure wire. iFR measurement was made but ca me back physiologically insignificant at 0.94. Hence no interventions were performed. Patient naty ated the procedure well. Hemostasis was achieved using TR band. There were no immediate complicatio ns. The following findings were noted. FINDINGS 1. Hemodynamics: Left ventricular end-diastolic pressure of 5 mmHg. No pullback gradient across the aortic valve. 2. Coronary angiography: a. The left main coronary artery arose from the left sinus of Valsalva, gave rise to the left anteri or descending and left circumflex arteries and did not show any significant stenosis. b. The left anterior descending artery showed 30% stenosis in the midsegment. The diagonal branch s howed tandem 30% stenosis in the proximal segment. c. The left circumflex artery did not show any significant stenosis. d. The right coronary artery was a large and dominant vessel arising from the right sinus of Valsalv a that showed 40 to 50% stenosis in the midsegment that was physiologically insignificant based on IF R measurement of 0.94. Conclusion Nonobstructive coronary artery disease, 40 to 50% stenosis involving right coronary artery there was physiologically insignificant based on IFR measurement. Recommendations Optimization of medical therapy for non-ischemic cardiomyopathy and repeat 2D echo in 3 months to murray luate the need for AICD implantation. Signed by : Evelin Lacy, Electronically Approved : 04/14/2021 10:51:15
--- NOTE | 2021-04-14 12:30 | NUR ---
Dr Sarabia here to see patient and answer questions. Reinforced need to take prescriptions and close follow up. Pt and voiced understanding. HU MOLINA
--- NOTE | 2021-04-14 13:20 | NUR ---
Discharge Note: TRACIE KURTZ Discharge instructions and discharge home medications reviewed with Patient and a copy given. All questions have been answered and understanding verbalized. Radial site dressing dry and intact, armboard in place The following instructions and handouts were given: radial site care, incision care, sedation, heart failure Discontinued lines and drains: Peripheral IV intact. Patient discharged to Home or Self Care with Spouse via Wheelchair HU RN Addendum: 04/14/21 at 1330 by CORNELIUS FRAZIER RN Amended: Links added.
== END 2021-04-14 13:20 | disposition home or self-care (01) ==
LOC: CCL 08:11
PROVIDERS: ATTEND Internal Medicine Cardiovascular Disease
DX: I42.8 Other cardiomyopathies (principal); I25.10 Atherosclerotic heart disease of native coronary artery without angina pectoris; I11.0 Hypertensive heart disease with heart failure; I50.9 Heart failure, unspecified; Z79.899 Other long term (current) drug therapy; Z98.890 Other specified postprocedural states; Z72.89 Other problems related to lifestyle
CPT/HCPCS: 36415; 80048; 85027; 93458; 93571; 99152; 99153; C1769; C1887; C1894; J1644; J2250; J3010; J3490; Q9967